=== PATIENT | female | born 1960 | race African-American/Black ===

== ENCOUNTER 2018-12-20 21:34 | Inpatient (IN) | payer MEDICAID, OTHER ==
[~2018-12-20] VITALS: Ht 152.4 cm; Wt 66.7 kg
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
[2018-12-20] MEDS ORDERED: IV NS 0.9% 1,000 ML BAG IV ONE (22:30)
[2018-12-20] MEDS ORDERED: CLONIDINE HCL 0.1 MG TABLET PO ONE (22:30)
[2018-12-20] MEDS ORDERED: ONDANSETRON HCL/PF 4 MG/2 ML VIAL IVP ONE (22:30)
[2018-12-20] MEDS ORDERED: MORPHINE SULFATE INJ 2 MG/ML DISP.SYRIN IV ONE (22:30)
[2018-12-20 22:38] LABS: BASOPHILS # (AUTO) 0.1 /CMM (0.0-0.2); BASOPHILS % (AUTO) 0.6 % (0.0-2.0); EOSINOPHILS % (AUTO) 2.1 % (0.0-6.0); HEMATOCRIT 36 % (33-45); HEMOGLOBIN 11.2 g/dL (11.5-14.8); LYMPHOCYTES # (AUTO) 1.4 /CMM (0.8-4.8); LYMPHOCYTES % (AUTO) 9.6 % (20.0-44.0); MEAN CORPUSCULAR HGB CONC 31 g/dl (31.0-36.0); MEAN CORPUSCULAR VOLUME 77 fL (82-100); MONOCYTES # (AUTO) 0.6 /CMM (0.1-1.30); NEUTROPHILS # (AUTO) 12.2 /CMM (1.8-8.9); NEUTROPHILS % (AUTO) 83.7 % (43.0-81.0); PLATELET COUNT (AUTO) 236 /CMM (150-450); RED BLOOD CELL COUNT(AUTO) 4.75 MIL/uL (4.0-5.2); WHITE BLOOD COUNT (AUTO) 14.6 K/uL (4.3-11.0)
[2018-12-20] MEDS ORDERED: ONDANSETRON HCL/PF 4 MG/2 ML VIAL ONE (22:39)
[2018-12-20] MEDS ORDERED: MORPHINE SULFATE INJ 2 MG/ML DISP.SYRIN ONE (22:39)
[2018-12-20] MEDS ORDERED: CLONIDINE HCL 0.1 MG TABLET ONE (22:39)
[2018-12-20 22:41] LABS: CALCIUM, SERUM 8.6 mg/dL (8.5-10.1); CREATININE 1.1 mg/dL (0.6-1.3); POTASSIUM 3.1 mmol/L (3.5-5.1)
[2018-12-20] MEDS ORDERED: hydrALAZINE HCL IV 20 MG VIAL ONE (23:42)
--- NOTE | 2018-12-20 23:50 | NUR ---
PT IN BED RESTING. -NEURO DEFICITS NOTED. AOX4.
[2018-12-20] MEDS ORDERED: POTASSIUM CHLORIDE 20 MEQ TAB.PRT.SR PO ONE (23:54)
[2018-12-20] MEDS ORDERED: LEVETIRACETAM (250 MG) 250 MG TABLET PO ONE (23:54)
[2018-12-21] VITALS (37 sets, daily range): BP systolic 116–204; BP diastolic 48–109
[2018-12-21] MEDS ORDERED: LEVETIRACETAM (500MG) 1,000 MG in IV NS 0.9% 100 ML IV SCH ×2
[2018-12-21] MEDS ORDERED: hydrALAZINE HCL IV 20 MG VIAL IV ONE
[2018-12-21] MEDS ORDERED: POTASSIUM CHLORIDE 20 MEQ TAB.PRT.SR PO ONE
[2018-12-21] MEDS: LEVETIRACETAM (250 MG) 250 MG TABLET PO SCH ×3 (00:01→17:10)
[2018-12-21] MEDS ORDERED: LEVETIRACETAM (250 MG) 250 MG TABLET PO ONE ×2 (00:08→01:00)
[2018-12-21 00:36] LABS: APPEARANCE,URINE Clear (CLEAR); BILIRUBIN,URINE Negative (NEGATIVE); BLOOD, URINE Moderate Ery/uL (NEGATIVE); COLOR,URINE Yellow (YELLOW); KETONES,URINE Negative (NEGATIVE); LEUKOCYTE ESTERASE ,URINE Negative (NEGATIVE); NITRITE, URINE Negative (NEGATIVE); PROTEIN,URINE >=300 mg/dl (NEGATIVE); UGLUCOSE Negative (NEGATIVE)
--- NOTE | 2018-12-21 00:40 | NUR ---
REPORT GIVEN TO ICU.
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
[2018-12-21 01:07] LABS: BACTERIA,URINE None seen /HPF (None Seen); HYALINE CASTS, URINE Few /LPF (None Seen); RBC,URINE 21-50 /HPF (0-2); SQUAMOUS EPITHELIAL CELL,UR Few /HPF (None Seen); WBC,URINE 0-2 /HPF (0-3)
[2018-12-21] MEDS ORDERED: ONDANSETRON HCL/PF 4 MG/2 ML VIAL IVP PRN (01:30)
[2018-12-21] MEDS: METOPROLOL TARTRATE INJ 5 MG/5 ML AMPUL IVP PRN ×2 (01:34→22:45)
[2018-12-21] MEDS: LISINOPRIL (10MG) 10 MG TABLET PO SCH ×3 (01:34→20:15)
[2018-12-21 04:15] LABS: BASOPHILS % (AUTO) 0.3 % (0.0-2.0); HEMATOCRIT 32 % (33-45); HEMOGLOBIN 10.1 g/dL (11.5-14.8); LYMPHOCYTES # (AUTO) 0.6 /CMM (0.8-4.8); LYMPHOCYTES % (AUTO) 4.8 % (20.0-44.0); MEAN CORPUSCULAR HGB CONC 32 g/dl (31.0-36.0); MEAN CORPUSCULAR VOLUME 76 fL (82-100); MONOCYTES # (AUTO) 0.7 /CMM (0.1-1.30); MONOCYTES % (AUTO) 5.6 % (2.0-12.0); NEUTROPHILS # (AUTO) 10.5 /CMM (1.8-8.9); NEUTROPHILS % (AUTO) 89.3 % (43.0-81.0); PLATELET COUNT (AUTO) 201 /CMM (150-450); RED BLOOD CELL COUNT(AUTO) 4.14 MIL/uL (4.0-5.2); WHITE BLOOD COUNT (AUTO) 11.8 K/uL (4.3-11.0)
[2018-12-21 04:42] LABS: ALBUMIN 3.2 g/dL (3.4-5.0); BILIRUBIN,TOTAL 0.9 mg/dL (0.2-1.0); CREATININE 1.1 mg/dL (0.6-1.3); POTASSIUM 3.4 mmol/L (3.5-5.1); TOTAL PROTEIN, SERUM 7.3 g/dL (6.4-8.2)
--- NOTE | 2018-12-21 07:56 | NUR ---
WOUND CARE CONSULT: DIFFICULT AND LIMITED ASSESSMENT OF SKIN DUE TO PT'S DISCOMFORT AND INABILITY TO TURN COMPLETELY IN BED. PT PRESENTS WITH SCALP AND LEFT HIP/LOWER BACK ABRASIONS AND BRUISING WITH DRY ABRASIONS WELL. PT COMPLAINS OF PAIN IN LEFT LOWER LEG AND THIGH. RN TO DISCUSS WITH MD. RECOMMENDATIONS MADE FOR WOUND CARE AND SKIN PROTECTION. DISCUSSED WITH NURSING STAFF. VERY LONG CURLING TOENAILS NOTED. RECOMMEND DPM CONSULT. PT AGREES. RECOMMEND SURGICAL CONSULT FOR ABRASIONS. WILL SEE PRN. CURRENT OMAR SCORE IS 16. MD IN AGREEMENT WITH PLAN OF CARE. Addendum: 12/21/18 at 0802 by GLADYS MA WNDNU Amended: Links added.
[2018-12-21] MEDS ORDERED: Z GUARD REMEDY 2 OZ OINT TP PRN (08:00)
[2018-12-21] MEDS: PANTOPRAZOLE 40 MG TABLET.DR PO SCH (08:23)
[2018-12-21] MEDS: METOPROLOL TARTRATE 50 MG TABLET PO SCH ×2 (08:24→17:10)
[2018-12-21] MEDS: Z GUARD REMEDY 2 OZ OINT TP SCH (08:24)
[2018-12-21 08:28] LABS: IRON, SERUM 31 ug/dl (50-175); TOTAL IRON BINDING CAPACITY 277 ug/dl (250-450)
[2018-12-21] MEDS ORDERED: LEVETIRACETAM SOL (5 ML) 100 MG/ML UDC PO SCH (09:00)
--- NOTE | 2018-12-21 09:30 | NUR ---
RN NOTE 0715: received patient awake. A/Ox4. With PIV intact, on SL. Mathew cath intact, noted with clear jason colored urine drained to BSD. SR 80's on the monitor. SBP 130's now. No c/o chest pain. With c/o generalized pain. 0800: S/E by wound care consult. Skin reassessed. Noted with LLE pain when moving. Trop 0.239, reported to Dr. Herman because he called to follow up, lab said the did not receive the order. Also made Dr. Macias in the unit aware. 0900: S/E by Dr. Macias, with order to do Xray on LLE and will do follow up CT head. 929: Still with c/o pain, will given Tylenol, she said Tylenol regular is ok, she can have she said.
[2018-12-21] MEDS: ACETAMINOPHEN 325 MG TABLET PO PRN ×2 (09:39→21:04)
[2018-12-21] MEDS ORDERED: CLON0.2T PO (10:22)
--- NOTE | 2018-12-21 11:10 | NUR ---
RN NOTE Patient back from CT, accompanied patient to CT, no any significant changes noted.
[2018-12-21] MEDS ORDERED: POTASSIUM CHLORIDE 20 MEQ TAB.PRT.SR PO SCH (11:30)
[2018-12-21] MEDS: IV 1/2NS 1000 ML 1,000 ML IV PRN (13:34)
--- NOTE | 2018-12-21 13:35 | NUR ---
RN NOTE Made MD aware re: low UOP, 30-40 q2H, obtained order to start on /2 NS @ 75, still encouraged patient to increase oral fluid intake. Also made her aware re: the result of left knee XR, questionable transverse fracture through fibular head.
--- NOTE | 2018-12-21 16:37 | NUR ---
RN NOTE 1620: S/E by Dr. Wale Mcgill assistance. To continue monitor, pain med as ordered. S/E by Belen, with order to lpace Xeroform on lower back abrasion and ABD pad, aslo to occipital area abrasion. general service technician at bedside for Carotid duplex and echo. 1635: XR tech at bedside for left ankle XR.
--- NOTE | 2018-12-21 16:56 | NUR ---
RN NOTE Skin treatment done. Cleansed lower back abrasion with NS, applied Xeroform and covered with Mepilex. Cleansed occipital area wound with NS, pat dry and applied Xeroform, Mepilex and secured with burn net.
[2018-12-21] MEDS ORDERED: ENSURE ENLIVE CHOC 237 ML CAN PO SCH (17:00)
--- NOTE | 2018-12-21 18:21 | NUR ---
RN NOTE SonBrenda came to visit, updated patient re: patient's condition. All questions and concerns were answered. Obtained number for emergency to call .
--- NOTE | 2018-12-21 19:30 | NUR ---
MUSIC INDUSTRY INTERN: RECEIVED PT A/O X 3. ON ROOM AIR WT NO ACUTE DISTRESS. NO C/O OF PAIN AT THIS TIME ONLY DURING REPOSITIONING. SR WT BBB ON STORE OPERATIONS ASSOCIATE. ON 09/21 NS AT 75ML/HR WT NO S/S OF IV INFILTRATION. F/C DRAINING YELLOW URINE TO GRAVITY. HOB AT 35 DEGREES. SAFETY PRECAUTION NOTED. CALL LIGHT KEPT WITHIN REACH. WILL CONTINUE TO MONITOR.
[2018-12-21] MEDS: NITROGLYCERIN PACKET 1 GM PACKET TOP PRN (21:41)
--- NOTE | 2018-12-21 22:05 | NUR ---
RECORDS TECH: REASSESSED AFTER GIVEN TYLENOL FOR LEFT LEG PAIN AND PT VERBALIZED RELIEF AT THIS TIME (0/10). WILL CONTINUE TO MONITOR.
--- NOTE | 2018-12-21 22:45 | NUR ---
CONDUCTOR/BRAKEMAN: METOPROLOL IV PRN GIVEN FOR SBP STILL ABOVE 150 DESPITE GIVEN NITRO BID OINTMENT. REMAINED A/O X 3. WILL CONTINUE TO MONITOR EFFECTIVITY.
[2018-12-22] VITALS (23 sets, daily range): BP systolic 130–199; BP diastolic 69–127
--- NOTE | 2018-12-22 00:30 | NUR ---
SAFETY LEAD: PAGED DR. ELLIOTT, RFID SYSTEMS ARCHITECT TO NOTIFY HIM OF PT's HIGH BP DESPITE NITRO AND METOPROLOL ADMIN AND MAYBE STRONGER PAIN MED PT VERBALIZES PAIN DURING REPOSITIONING. AWAITING TO CALL BACK.
--- NOTE | 2018-12-22 00:35 | NUR ---
RECRUITING OPERATIONS CONSULTANT: DR. ELLIOTT IN ICU UNIT AND MADE AWARE OF TRENDING HIGH BP AND RECOMMENDED STRONGER PAIN MED. SAID HE PLACED ORDERS FOR MORPHINE AND CONTINUE TO MONITOR PT.
[2018-12-22] MEDS: MORPHINE SULFATE INJ 2 MG/ML DISP.SYRIN IV PRN ×3 (02:16→21:23)
--- NOTE | 2018-12-22 02:20 | NUR ---
CASH GRAIN GROWER: SBP STILL HIGH AT THIS TIME. PT C/O PAIN (8/10) ON BOTH LEGS DURING REPOSITIONING. MORPHINE GIVEN ORDERED. WILL CONTINUE TO MONITOR EFFECTIVITY. PLACED ON 2L 02 VIA NC. HOB ON HIGH CHAUDHRY'S.
[2018-12-22] MEDS: IV 1/2NS 1000 ML 1,000 ML IV PRN ×2 (03:20→21:01)
--- NOTE | 2018-12-22 03:20 | NUR ---
PLASTER FOREMAN: NOTIFIED DR. ELLIOTT THAT BP CONTINUES TO BE ELEVATED EVEN AFTER MORPHINE ADMIN. MD PLACED NEW ORDERS. WILL ADMINISTER ORDERED AND MONITOR EFFECTIVITY.
[2018-12-22] MEDS: AMLODIPINE BESYLATE 5 MG TABLET PO SCH ×3 (03:29→20:01)
[2018-12-22 04:54] LABS: BASOPHILS % (AUTO) 0.4 % (0.0-2.0); EOSINOPHILS % (AUTO) 4.3 % (0.0-6.0); HEMATOCRIT 30 % (33-45); HEMOGLOBIN 9.6 g/dL (11.5-14.8); LYMPHOCYTES # (AUTO) 1.3 /CMM (0.8-4.8); MEAN CORPUSCULAR HGB CONC 32 g/dl (31.0-36.0); MEAN CORPUSCULAR VOLUME 76 fL (82-100); MONOCYTES # (AUTO) 0.7 /CMM (0.1-1.30); MONOCYTES % (AUTO) 9.6 % (2.0-12.0); NEUTROPHILS # (AUTO) 5.3 /CMM (1.8-8.9); NEUTROPHILS % (AUTO) 68.7 % (43.0-81.0); PLATELET COUNT (AUTO) 180 /CMM (150-450); RED BLOOD CELL COUNT(AUTO) 3.89 MIL/uL (4.0-5.2); WHITE BLOOD COUNT (AUTO) 7.8 K/uL (4.3-11.0)
[2018-12-22] MEDS: hydrALAZINE HCL 25 MG TABLET PO PRN ×3 (05:08→18:17)
[2018-12-22 05:13] LABS: CALCIUM, SERUM 8.3 mg/dL (8.5-10.1); MAGNESIUM 2.1 mg/dL (1.8-2.4); PHOSPHORUS 2.6 mg/dL (2.5-4.9); POTASSIUM 3.6 mmol/L (3.5-5.1)
[2018-12-22] MEDS: NITROGLYCERIN PACKET 1 GM PACKET TOP PRN ×2 (06:12→20:02)
[2018-12-22 06:25] LABS: THYROID STIMULATING HORMONE 2.163 uIU/mL (0.358-3.74)
--- NOTE | 2018-12-22 06:25 | NUR ---
PLATE WORKER HELPER: GIVEN NITRO BID OINTMENT AGAIN AFTER GIVEN APRESOLINE WTO GOOD EFFECT. REMAINED A/O X 3. ASLEEP, ABLE TO WAKE UP AND MAKE NEEDS KNOWN. CONTINUE ON 2L 02 VIA LA FOR SAT BET. 90-91 ON R/A. HOB AT 45 DEGREES. REFUSED BED BATH AND REPOSITIONING LATER DURING THE SHIFT AND SAID IT HURTS TO MOVE AROUND. SAFETY PRECAUTION NOTED AT ALL TIMES.
--- NOTE | 2018-12-22 08:00 | NUR ---
FOOD SCIENTIST: RECEIVED PT ALERT, ORIENTED ON 2L NC NO SOB NOTED AT THIS TIME NO C/O OF PAIN AT THIS TIME ONLY DURING REPOSITIONING. SR WT BBB ON MOLECULAR BIOLOGY SCIENTIST. ON 09/21 NS AT 75ML/HR WT NO S/S OF IV INFILTRATION. F/C DRAINING YELLOW URINE TO GRAVITY. HOB AT 35 DEGREES. SAFETY PRECAUTION NOTED. CALL LIGHT KEPT WITHIN REACH. WILL CONTINUE TO MONITOR. HAVING BREAKFAST FED BY STUFF, CALL LIGHT WITHIN REACH , WILL CONT TO MONITOR CLOSELY
[2018-12-22] MEDS: LEVETIRACETAM (250 MG) 250 MG TABLET PO SCH ×2 (08:19→17:08)
[2018-12-22] MEDS: LISINOPRIL (10MG) 10 MG TABLET PO SCH ×2 (08:22→20:01)
[2018-12-22] MEDS: PANTOPRAZOLE 40 MG TABLET.DR PO SCH (08:22)
[2018-12-22] MEDS: METOPROLOL TARTRATE 50 MG TABLET PO SCH ×2 (08:22→17:09)
[2018-12-22] MEDS: Z GUARD REMEDY 2 OZ OINT TP SCH (08:27)
--- NOTE | 2018-12-22 10:42 | NUR ---
ENERGY ATTORNEY NOTE C\O PAIN ON LEGS 9\10 SCALE BP143/78 SAT 98% MORPHINE 2 MG IVP GIVEN WILL F\U
--- NOTE | 2018-12-22 14:30 | NUR ---
ATTENDANT SALES NOTE SPOKE WITH DR BOWEN NOTIFIED ABOUT TROP 0.140 CK-MB 104.[address] HEAD RESULT STATED THAT WILL CALL DANCE MASTER AND NEUROLOGIST TO CHECK PATIENT ALSO NOTIFIED THAT PATENT STILL HAS BP SBP 180 AND 170 ,ON PRINIVIL AND OTHER BP MEDS STATED THAT WILL ADJUST BP MEDS
--- NOTE | 2018-12-22 14:30 | NUR ---
ELECTRO MECHANIC NOTE X RAY RT LEG DONE ORDERED
--- NOTE | 2018-12-22 14:40 | NUR ---
OVERLOCKER NOTE DR BOWEN NOTIFIED THAT URINE OUT PUT 250 ML SINCE 0700, NO NEW ORDER GIVEN AT THIS TIME
--- NOTE | 2018-12-22 14:45 | NUR ---
STAFF APPRAISER NOTE DOPPLER US RT LEG DONE ORDERED
--- NOTE | 2018-12-22 15:05 | NUR ---
UI UX ENGINEER NOTE TRANSFERRED TO [facility] UNIT BY ACLS PROTOCOL BY BED , WITH STABLE CONDITION , REPORT GIVEN TO TORIN OZUNA
--- NOTE | 2018-12-22 15:05 | NUR ---
MS RN NOTES RECEIVED PATIENT FROM ICU REPORT GIVEN BY SABRINA ALERT ORIENTED X 2-3. NO ACUTE DISTRESS NOTED. BREATHING UNLABORED. NO SOB NOTED. ON O2 @ 2LPM VIA NC SATURATING 99%. SMITH CATHETER INTACT DRAINING WELL. ON TELE MONITOR. IV ACCESS PATENT AND INTACT, NO REDNESS OR SWELLING NOTED. SAFETY MEASURES IN PLACE. CALL LIGHT WITHIN REACH. WILL CONTINUE TO MONITOR ACCORDINGLY.
[2018-12-22] MEDS ORDERED: ACETAMINOPHEN 325 MG TABLET PO PRN (16:30)
--- NOTE | 2018-12-22 17:06 | NUR ---
RN NOTES PATIENT NOTED WITH BLOOD PRESSURE OF 180/90 , PULSE 82, NOT IN DISTRESS. DR SNELL PRESENT IN THE UNIT MADE AWARE SAID TO GIVE METOPROLOL TARTRATE 100 MG FOR NOW SCHEDULED AT 1800, RECHECK BLOOD PRESSURE AGAIN AFTER 1 HOUR AND MAY GIVE HYDRALAZINE 25 MG PRN ORDERED.
--- NOTE | 2018-12-22 18:17 | NUR ---
RN NOTES BLOOD PRESSURE 178/91 PULSE 81, HYDRALAZINE PRN GIVEN ,DR SNELL PRESENT IN THE UNIT AWARE.
--- NOTE | 2018-12-22 19:00 | NUR ---
MS RN NOTES PATIENT IN BED ALERT ORIENTED X 2-3. NO ACUTE DISTRESS NOTED. BREATHING UNLABORED. SAFETY MEASURES IN PLACE. CALL LIGHT WITHIN REACH. WILL CONTINUE TO MONITOR ACCORDINGLY.
--- NOTE | 2018-12-22 20:00 | NUR ---
kaitlin rn notes received pts in bed awake alert oriented x1-2 , on tele monitor sr 74with bbb- on the monitor , no sob no distress noted .pts on o2 at 2 liters via nc sating 96% bp 170/81 ,norvasc prinivil and nitrobid given as ordered, will continue to monitor pts.with iv heplock on left wrist g#20 with ivf of 1/2 ns at 75cc/hr well tolerated , all needs attended too call light within reach , pts on NWB-BLE,all due meds given as ordered, kept pts clean dry and comfortable, pts on f/a intact and patent draining with yellowish urine output, pts no complain of pain at this time.
[2018-12-23] VITALS: BP 164/85
[2018-12-23 04:00] VITALS: BP 162/78
[2018-12-23] MEDS: hydrALAZINE HCL 25 MG TABLET PO PRN ×3 (04:30→16:16)
--- NOTE | 2018-12-23 04:30 | NUR ---
kaitlin rn notes blood pressure at 4am is 162/85 -Apresoline 25 mg via po given as ordered .will continue to monitor pts
--- NOTE | 2018-12-23 06:23 | NUR ---
kaitlin rn notes pts in bed alert and responsive , all needs attended too call light within reach pts remains on tele sr on the monitor , v/s stable afebrile no c/o of pain at this time , will endorse to rn day shift for continuity of care, pts continue on ivf 1/2 ns at 75cc/hr infusing well.
[2018-12-23 06:44] LABS: BASOPHILS # (AUTO) 0.1 /CMM (0.0-0.2); BASOPHILS % (AUTO) 0.8 % (0.0-2.0); EOSINOPHILS % (AUTO) 3.5 % (0.0-6.0); HEMATOCRIT 29 % (33-45); HEMOGLOBIN 9.5 g/dL (11.5-14.8); LYMPHOCYTES # (AUTO) 1.7 /CMM (0.8-4.8); LYMPHOCYTES % (AUTO) 17.7 % (20.0-44.0); MEAN CORPUSCULAR HGB CONC 32 g/dl (31.0-36.0); MEAN CORPUSCULAR VOLUME 76 fL (82-100); MONOCYTES # (AUTO) 0.8 /CMM (0.1-1.30); MONOCYTES % (AUTO) 8.8 % (2.0-12.0); NEUTROPHILS # (AUTO) 6.6 /CMM (1.8-8.9); NEUTROPHILS % (AUTO) 69.2 % (43.0-81.0); PLATELET COUNT (AUTO) 149 /CMM (150-450); RED BLOOD CELL COUNT(AUTO) 3.89 MIL/uL (4.0-5.2); WHITE BLOOD COUNT (AUTO) 9.6 K/uL (4.3-11.0)
[2018-12-23 06:59] LABS: CALCIUM, SERUM 8.5 mg/dL (8.5-10.1); CREATININE 0.7 mg/dL (0.6-1.3); MAGNESIUM 2.1 mg/dL (1.8-2.4); PHOSPHORUS 3.6 mg/dL (2.5-4.9)
--- NOTE | 2018-12-23 07:10 | NUR ---
[facility] RN OPENING NOTES RECEIVED PT LYING ON BED.ALERT/ORIENTED X3.ON TELE HR IS 89 WITH SR.ON 2 L O2 VIA NC CONTINUOUSLY.NO SOB AND ACUTE DISTRESS NOTED.NO PAIN NOTED FOR NOW.ON FC IS IN PLACE.IV LINE IS ON LEFT WRIST G20 WITH 1/2 NS @75CC/HR IS RUNNING.SITE IS CLEAN,DRY AND INTACT.NO INFILTRATION NOTED.BED IS IN LOW POSITION AND LOCKED.CALL LIGHT IS WITHIN REACH.WILL CONTINUE TO MONITOR THE POT CLOSELY.
[2018-12-23 08:00] VITALS: BP 154/91
[2018-12-23] MEDS: PANTOPRAZOLE 40 MG TABLET.DR PO SCH (08:33)
[2018-12-23] MEDS: LISINOPRIL (10MG) 10 MG TABLET PO SCH ×3 (08:38→21:43)
[2018-12-23] MEDS: LEVETIRACETAM (250 MG) 250 MG TABLET PO SCH ×2 (08:38→16:15)
[2018-12-23] MEDS: Z GUARD REMEDY 2 OZ OINT TP SCH (08:39)
[2018-12-23] MEDS: METOPROLOL TARTRATE 50 MG TABLET PO SCH ×2 (08:39→17:04)
[2018-12-23] MEDS: AMLODIPINE BESYLATE 5 MG TABLET PO SCH ×2 (08:39→21:43)
[2018-12-23] MEDS: IV 1/2NS 1000 ML 1,000 ML IV PRN (11:14)
[2018-12-23 12:00] VITALS: BP 140/68
[2018-12-23 16:00] VITALS: BP_SYST 193; BP_DIAS 80; BP_DIAS 82
[2018-12-23] MEDS: NITROGLYCERIN PACKET 1 GM PACKET TOP PRN (16:15)
--- NOTE | 2018-12-23 16:15 | NUR ---
PHP WEBSITE DEVELOPER NOTES PT NOTED WITH TEMP 101.3,NOTIFIED DR.SANTA Layne,ORDERED STAT UA,URINE C&S,BLOOD CULTURE,CHEST X-RAY AND START MOTRIN 600MG PO Q6HR PRN FOR TEMP >99F AND IV LEVAQUIN 500MG QD.NEW ORDERS NOTED AND CARRIED OUT. Addendum: 12/23/18 at 1905 by NAOMI CHU RN APPLIED COLD APPLICATION BY SPONGE TOWEL.OFFERED MORE HYDRATION.
[2018-12-23] MEDS: IBUPROFEN 200 MG TABLET PO PRN (17:19)
--- NOTE | 2018-12-23 17:45 | NUR ---
COMPUTER FORENSICS ANALYST NOTES URINE IS COLLECTED AND LAB IS NOTIFIED TO FUMIGATOR AND STERILIZER.
--- NOTE | 2018-12-23 18:17 | NUR ---
PROCESS SPECIALIST NOTES CHEST X RAY RESULT NOTIFIED TO DR.SANTA JOHNSON.NNO NOTED.
[2018-12-23] MEDS: LEVOFLOXACIN 500 MG /D5W 100ML 500 MG in PREMIX 1 EA IV SCH (18:22)
--- NOTE | 2018-12-23 18:30 | NUR ---
MEDIA STRATEGIST NOTES RECHECKED TEMP-98.4.NOTIFIED TO DR.SANTA JOHNSON
--- NOTE | 2018-12-23 18:47 | NUR ---
HOSPITALITY HOUSE SUPERVISOR CLOSING NOTES PT IS LYING ON BED.ALERT/ORIENTED X3.ON TELE HR IS 66 WITH SR.ON 2 L O2 VIA NC CONTINUOUSLY.NO SOB AND ACUTE DISTRESS NOTED.NO PAIN NOTED FOR NOW.ON FC IS IN PLACE.IV LINE IS ON LEFT WRIST G20 WITH IV LEVAQUIN 500MG IS RUNNING.SITE IS CLEAN,DRY AND INTACT.NO INFILTRATION NOTED.ALL THE DUE MEDS ARE GIVEN.RECHECKED TEMP -98.4 F.ENDORSED TO TANK CAR RECONDITIONER RN FOR KISHA AND TO RECHECK THE VITAL SIGNS.
--- NOTE | 2018-12-23 19:00 | NUR ---
OVERHEAD CRANE INSPECTOR OPENING NOTES Received patient A/O x2-3, awake with son at bedside. With O2 inhalation via NC @ 2LPM, saturating 94%. With indwelling catheter in place with clear yellow urine noted. No discomfort noted at this time. Kept bed low and locked, siderails x3 up, call light within easy reach. Will continue to monitor accordingly.
[2018-12-23 19:02] LABS: APPEARANCE,URINE CLEAR (CLEAR); BILIRUBIN,URINE NEGATIVE (NEGATIVE); BLOOD, URINE NEGATIVE Ery/uL (NEGATIVE); COLOR,URINE YELLOW (YELLOW); KETONES,URINE NEGATIVE (NEGATIVE); LEUKOCYTE ESTERASE ,URINE NEGATIVE (NEGATIVE); NITRITE, URINE NEGATIVE (NEGATIVE); PH,URINE 5.5 (5.0-8.0); PROTEIN,URINE NEGATIVE (NEGATIVE); UGLUCOSE NEGATIVE (NEGATIVE); UROBILINOGEN,URINE 0.2 EU/dL (0.2)
[2018-12-23 20:00] VITALS: BP 147/63
--- NOTE | 2018-12-23 20:15 | NUR ---
PIPELINE DISPATCH OPERATOR NOTES Patient noted with prominent confusion, pulled out her indwelling catheter. Notified educational institution president MD, Dr Herman with order STAT CT Scan of Head without contrast. Notified radiology.
--- NOTE | 2018-12-23 20:55 | NUR ---
MOLD UNLOADER NOTES Patient transported to radiology for the stat ct head without contrast as ordered. On external monitor, with O2 inhalation in place, accompanied by MARKUS Palmer.
--- NOTE | 2018-12-23 21:22 | NUR ---
DENTAL AMALGAM PROCESSOR NOTES Patient wheeled back to room via bed. Assisted to position of comfort, secured O2 inhalation properly. Attached to tele monitor - SR with BBB with ST elevation. Kept bed low and locked, siderails up x3, bed alarm on, call light within easy reach. Will continue to monitor accordingly.
--- NOTE | 2018-12-23 23:30 | NUR ---
SUPERVISOR TRANSCRIBING OPERATORS NOTES HEAD CT SCAN W/OUT CONTRAST RESULT RELAYED TO DR ELLIOTT WITH NEW ORDER NOTED. SON AT BEDSIDE KEPT UPDATED. WILL CONTINUE TO MONITOR ACCORDINGLY.
--- NOTE | 2018-12-23 23:53 | NUR ---
BIOLOGY SPECIMEN TECHNICIAN NOTES Patient asleep. Son leaved at this time.
[2018-12-24] VITALS: BP 136/64
[2018-12-24 04:00] VITALS: BP 136/64
[2018-12-24] MEDS: hydrALAZINE HCL 25 MG TABLET PO PRN (04:40)
[2018-12-24] MEDS: MORPHINE SULFATE INJ 2 MG/ML DISP.SYRIN IV PRN (04:40)
[2018-12-24] MEDS: NITROGLYCERIN PACKET 1 GM PACKET TOP PRN (04:40)
--- NOTE | 2018-12-24 06:20 | NUR ---
CLIENT HR MANAGER CLOSING NOTES Patient noted intermittently asleep, easily aroused. On semi-Vega's position on bed with O2 inahalation via NC @ 2LPM no SOB/respiratory distress noted. On tele monitor with SR noted. FC remained in placed with clear yellow urine output noted. Medicated for hypertension, noted effective with latest BP 144/74mmHg. Kept clean, dry and comfortable. Kept bed low and locked, siderails up, bed alarm on. Call light within easy reach. Endorsed to the next shift.
--- NOTE | 2018-12-24 07:20 | NUR ---
RN OPENING NOTE RECEIVED PATIENT ASLEEP ON HER BED, EASILY AROUSABLE TO TOUCH. CONFUSED. NO COMPLAINS OF ANY PAIN OR ANY SOB AT THIS TIME. SHE STATES THAT SHE FEELS BETTER TODAY. HAS A LEFT HIP ABRASION DUE TO S/P FALL. HAS A LEFT WRIST #20 SALINE LOCKED. DC PLANNING PER NOC SHIFT RN. WILL WATCH OUT FOR BLOOD PRESSURE, IT GOES UP AND PATIENT HAS HTN URGENCY. ON 2L NC. BED LOCKED AND ON LOWEST POSITION. CALL LIGHT WITHIN REACH. WILL CONTINUE TO MONITOR PATIENT CLOSELY.
[2018-12-24] MEDS: PANTOPRAZOLE 40 MG TABLET.DR PO SCH (07:48)
[2018-12-24] MEDS: METOPROLOL TARTRATE 50 MG TABLET PO SCH ×2 (07:48→17:59)
[2018-12-24 08:00] VITALS: BP 157/74
[2018-12-24] MEDS: AMLODIPINE BESYLATE 5 MG TABLET PO SCH ×2 (08:36→20:28)
[2018-12-24] MEDS: LEVETIRACETAM (250 MG) 250 MG TABLET PO SCH ×2 (08:36→16:09)
[2018-12-24] MEDS: LISINOPRIL (10MG) 10 MG TABLET PO SCH ×2 (08:36→20:28)
[2018-12-24] MEDS: hydrALAZINE HCL 50 MG TABLET PO SCH ×3 (08:40→16:57)
[2018-12-24 09:02] LABS: BASOPHILS # (AUTO) 0.1 /CMM (0.0-0.2); EOSINOPHILS % (AUTO) 3.8 % (0.0-6.0); HEMATOCRIT 27 % (33-45); HEMOGLOBIN 8.7 g/dL (11.5-14.8); LYMPHOCYTES # (AUTO) 1.2 /CMM (0.8-4.8); LYMPHOCYTES % (AUTO) 15.3 % (20.0-44.0); MEAN CORPUSCULAR HGB CONC 32 g/dl (31.0-36.0); MEAN CORPUSCULAR VOLUME 75 fL (82-100); MONOCYTES # (AUTO) 0.7 /CMM (0.1-1.30); MONOCYTES % (AUTO) 9.1 % (2.0-12.0); NEUTROPHILS # (AUTO) 5.7 /CMM (1.8-8.9); NEUTROPHILS % (AUTO) 70.8 % (43.0-81.0); PLATELET COUNT (AUTO) 201 /CMM (150-450); RED BLOOD CELL COUNT(AUTO) 3.59 MIL/uL (4.0-5.2); WHITE BLOOD COUNT (AUTO) 8.1 K/uL (4.3-11.0)
[2018-12-24 09:29] LABS: CALCIUM, SERUM 8.3 mg/dL (8.5-10.1); CREATININE 0.9 mg/dL (0.6-1.3); PHOSPHORUS 4.2 mg/dL (2.5-4.9); POTASSIUM 3.6 mmol/L (3.5-5.1)
--- NOTE | 2018-12-24 10:41 | NUR ---
RN NOTE PATIENT WAS SEEN BY THE PT. SEVERE WEAKNESS ON BOTH LEGS DUE TO HIP AND LOWER BACK ABRASIONS S/P FALL. ORDERED Z GUARD FROM THE PHARMACY
[2018-12-24] MEDS: Z GUARD REMEDY 2 OZ OINT TP SCH (13:17)
--- NOTE | 2018-12-24 15:00 | NUR ---
RN NOTE SON IS AT BEDSIDE, PHONE # . SON TALKED TO THE GARDENING MANAGER REGARDING THE PLACEMENT.
[2018-12-24 16:00] VITALS: BP 152/36
[2018-12-24] MEDS: LEVOFLOXACIN 500 MG /D5W 100ML 500 MG in PREMIX 1 EA IV SCH (17:48)
[2018-12-24] MEDS: FERROUS SULFATE (325 MG) 325 MG/TAB TABLET PO SCH (18:04)
--- NOTE | 2018-12-24 18:48 | NUR ---
RN CLOSING NOTE PATIENT IN BED ASLEEP BUT EASILY AROUSABLE. FINISHED HER DINNER 75%. SHE KEEPS FORGETTING THAT SHE HAS A SMITH CATH AND WANTS TO USE THE BEDSIDE COMMODE TO URINATE. NO BM DURING MY SHIFT. HAS A LEFT WRIST #20 SALINE LOCKED. BED ON LOWEST POSITION. CALL LIGHT WITHIN REACH. WILL ENDORSE TO NOC SHIFT RN FOR CONT OF CARE SON SAID HE WILL CALL TOMORROW AM TO DECIDE WHETHER HER MOM WILL GO HOME OR TO SNF
--- NOTE | 2018-12-24 19:45 | NUR ---
RN OPENING NOTES RECEIVED REPORT FROM DAYSHIFT RN. FOUND Pt ASLEEP IN BED, EASILY AWAKENED BY NAME. NO S/S OF ACUTE DISTRESS OR SOB NOTED. RESPIRATIONS EVEN AND UNLABORED. Pt IS A/OX1-2, WITH CONFUSION AND FORGETFULNESS. Pt IS VERBAL AND ABLE TO COMMUNICATE NEEDS AND ANSWER QUESTIONS AND FOLLOW COMMANDS. SMITH CATHETER IN PLACE, DRAINING WELL. IV ACCESS ON LWRIST #20G, SL. SAFETY MEASURES IN PLACE. BED LOW, LOCKED, HOB ELEVATED, SIDE RAILS UP, CALL LIGHT AND BEDSIDE TABLE WITHIN REACH. WILL CONTINUE TO MONITOR Pt's CONDITION AND SAFETY THROUGHOUT THE NIGHT.
--- NOTE | 2018-12-24 23:08 | NUR ---
RN NOTES EEG ORDERED BY DR FARRELL (NEURO MD) SCHEDULED FOR 12/25/18. SPOKE WITH EKATERINA ASHBY ([phone]) ON THE PHONE TO GET VERBAL CONSENT FOR EEG. ISREAL ASHBY SAID OK. SECOND WITNESS BY RECREATION TECHNICIAN ELSA.
[2018-12-25] VITALS: BP 180/98
[2018-12-25] MEDS: hydrALAZINE HCL 25 MG TABLET PO PRN (04:08)
[2018-12-25] MEDS: IBUPROFEN 200 MG TABLET PO PRN ×2 (04:21→13:00)
--- NOTE | 2018-12-25 05:06 | NUR ---
RN NOTES LWRIST IV GOT PULLED OUT. INSERTED NEW IV ACCESS ON RFA #22G.
--- NOTE | 2018-12-25 06:52 | NUR ---
RN CLOSING NOTES NO SIGNIFICANT CHANGES IN Pt's CONDITION. Pt REMAINS STABLE AT THIS TIME. NO S/S OF ACUTE DISTRESS OR SOB NOTED DURING THE NIGHT. Pt IS RESTING IN BED. RESPIRATIONS EVEN AND UNLABORED. SAFETY MEASURES IN PLACE. BED LOW, LOCKED, HOB ELEVATED, SIDE RAILS UP, CALL LIGHT AND BEDSIDE TABLE WITHIN REACH. WILL ENDORSE TO DAYSHIFT RN FOR Pt's KISHA.
[2018-12-25 07:03] LABS: BASOPHILS # (AUTO) 0.1 /CMM (0.0-0.2); BASOPHILS % (AUTO) 1.1 % (0.0-2.0); EOSINOPHILS % (AUTO) 3.6 % (0.0-6.0); HEMATOCRIT 29 % (33-45); HEMOGLOBIN 9.6 g/dL (11.5-14.8); LYMPHOCYTES # (AUTO) 1.3 /CMM (0.8-4.8); LYMPHOCYTES % (AUTO) 18.4 % (20.0-44.0); MEAN CORPUSCULAR HGB CONC 33 g/dl (31.0-36.0); MEAN CORPUSCULAR VOLUME 75 fL (82-100); MONOCYTES # (AUTO) 0.7 /CMM (0.1-1.30); NEUTROPHILS # (AUTO) 4.8 /CMM (1.8-8.9); NEUTROPHILS % (AUTO) 66.9 % (43.0-81.0); PLATELET COUNT (AUTO) 240 /CMM (150-450); RED BLOOD CELL COUNT(AUTO) 3.94 MIL/uL (4.0-5.2); WHITE BLOOD COUNT (AUTO) 7.1 K/uL (4.3-11.0)
[2018-12-25 07:21] LABS: CALCIUM, SERUM 8.3 mg/dL (8.5-10.1); CREATININE 0.7 mg/dL (0.6-1.3); MAGNESIUM 2.2 mg/dL (1.8-2.4); PHOSPHORUS 4.1 mg/dL (2.5-4.9); POTASSIUM 3.7 mmol/L (3.5-5.1)
--- NOTE | 2018-12-25 07:25 | NUR ---
RN OPENING NOTE RECEIVED PATIENT IN BED AWAKE AND ALERT, WAITING FOR HER BREAKFAST TRAY. SHE BECOMES CONFUSED FROM TIME TO TIME. HAS A SMITH CATH, WITH YELLOW AND CLEAR URINE. HAS LEFT HIP AND SCALP ABRASIONS. HAS A RIGHT FOREARM #22. PER NOC SHIFT, NEURO DOCTOR CAME IN LAST NIGHT AND WAS ASKING ABOUT THE NEURO SURGERY. WILL LET MD KNOW THIS MORNING ABOUT THIS. DR. FARRELL ORDERED EEG FOR THE PATIENT, SON IS AWARE AND CONSENT HAS BEEN SIGNED. BED LOCKED AND IN LOWEST POSITION. CALL LIGHT WITHIN REACH. WILL CONTINUE TO MONITOR CLOSELY
[2018-12-25] MEDS: LEVETIRACETAM (250 MG) 250 MG TABLET PO SCH ×2 (08:48→16:10)
[2018-12-25] MEDS: FERROUS SULFATE (325 MG) 325 MG/TAB TABLET PO SCH ×2 (08:48→16:10)
[2018-12-25] MEDS: PANTOPRAZOLE 40 MG TABLET.DR PO SCH (08:48)
[2018-12-25] MEDS: hydrALAZINE HCL 50 MG TABLET PO SCH ×3 (08:48→16:16)
[2018-12-25] MEDS: AMLODIPINE BESYLATE 5 MG TABLET PO SCH ×2 (08:49→21:04)
[2018-12-25] MEDS: METOPROLOL TARTRATE 50 MG TABLET PO SCH ×2 (08:49→17:42)
[2018-12-25] MEDS: LISINOPRIL (10MG) 10 MG TABLET PO SCH ×2 (08:50→21:04)
[2018-12-25] MEDS: Z GUARD REMEDY 2 OZ OINT TP SCH (08:52)
[2018-12-25 09:00] VITALS: BP 164/88
--- NOTE | 2018-12-25 14:11 | NUR ---
RN NOTE DR JOHNSON CAME IN TODAY TO CHECK THE PATIENT. DC HAS BEEN SUSPENDED DUE TO PATIENT'S SBP IS STILL >160. MD ORDERED 100MG OF HYDRALAZINE. WILL CONTINUE TO MONITOR PATIENT SON AT BEDSIDE. STILL UNDECIDED WHETHER HIS MOM IS GOING HOME OR TO SNF. EEG WAS DONE THIS AM. PATIENT HAD A BM AND OB STOOL SAMPLE HAS BEEN COLLECTED. CALLED LAB TO SHIP CLEANER.
[2018-12-25 15:15] LABS: OCCULT BLOOD STOOL NEGATIVE (NEGATIVE)
[2018-12-25 16:00] VITALS: BP 162/87
[2018-12-25] MEDS: LEVOFLOXACIN 500 MG /D5W 100ML 500 MG in PREMIX 1 EA IV SCH (17:26)
[2018-12-25 18:30] VITALS: BP 129/71
--- NOTE | 2018-12-25 18:31 | NUR ---
RN NOTE PATIENT'S BLOOD PRESSURE AT 1730 WAS 162/86, RECHECKED AFTER AN HOUR: BP 129/71
--- NOTE | 2018-12-25 18:45 | NUR ---
RN NOTE CALLED RADIOLOGY REGARDING PATIENT'S EEG RESULT. HE SAID HE WILL ASK THE COLOR BLENDER ABOUT IT. SON WAS ASKING ABOUT THE RESULT, I TOLD HIM IT WAS STILL PENDING. PLS FOLLOW UP
--- NOTE | 2018-12-25 18:54 | NUR ---
RN CLOSING NOTE PATIENT STABLE, HAD ISSUES WITH HER BP. SEE NOTES FOR BP FOR THE SHIFT. LAST TAKEN WAS 129/71. ALL MEDS ARE GIVEN, ALL NEEDS ARE MET. SON AWARE PLANS. NO COMPLAINS OF ANY PAIN OR ANY SOB. PATIENT CAN GO TO THE BEDSIDE COMMODE WITH ASSIST. SMITH CATH 1000ML OUTPUT. DC PLANNING FOR TOMORROW IF BP STABILIZE Addendum: 12/25/18 at 1857 by GEORGES PALACIO RN WILL ENDORSE TO NOC REJI RN FOR CONT OF CARE
--- NOTE | 2018-12-25 19:54 | NUR ---
RN MS OPENING NOTES RECEIVED PT IN BED, AWAKE ALERT ORIENTED X3, BREATHING EVEN AND UNLABORED ON ROOM AIR, NO SOB, COUGH OR CONGESTION. NO COMPLAINT OF PAIN OR DISCOMFORT AT THE TIME, BP IS 140/75 WILL CONTINUE TO MONITOR. IV ACCESS ON THE R FA 22G SL PATENT AND FLUSHING. F/C IN PLACE, BED IN LOWEST LOCKED POSITION, CALL LIGHT WITHIN REACH AT ALL TIMES, WILL CONTINUE TO MONITOR FREQUENTLY.
[2018-12-25 20:00] VITALS: BP 140/75
[2018-12-25 20:17] VITALS: BP 140/75
[2018-12-25] MEDS: MORPHINE SULFATE INJ 2 MG/ML DISP.SYRIN IV PRN (21:05)
[2018-12-26 04:00] VITALS: BP 167/83
[2018-12-26 05:10] VITALS: BP 167/75
[2018-12-26] MEDS: METOPROLOL TARTRATE INJ 5 MG/5 ML AMPUL IVP PRN (05:16)
[2018-12-26] MEDS: hydrALAZINE HCL 25 MG TABLET PO PRN (05:20)
--- NOTE | 2018-12-26 05:29 | NUR ---
pt bp 167/83, prn bp med administered, will continue to monitor
--- NOTE | 2018-12-26 06:14 | NUR ---
RN MS CLOSING NOTES PT REMAINS IN BED, SLEEPING, EASILY AROUSED TO NAME CALL, BREATHING EVEN AND UNLABORED ON ROOM AIR, NO SOB, COUGH OR CONGESTION. NO COMPLAINT OF PAIN OR DISCOMFORT AT THE TIME. IV ACCESS ON THE L WRIST 20G SL PATENT AND FLUSHING. F/C IN PLACE, BED IN LOWEST LOCKED POSITION, CALL LIGHT WITHIN REACH AT ALL TIMES, WILL ENDORSE TO DAY NURSE FOR KISHA
--- NOTE | 2018-12-26 07:33 | NUR ---
MS RN OPENING NOTE RECEIVED PT IN BED, ALERT AND ORIENTED X2-3. NO ACUTE DISTRESS NOTED. BREATHING IS EVEN AND UNLABORED ON ROOM AIR. LEFT WRIST 20G IV IS SALINE LOCKED WITHOUT REDNESS OR SWELLING. SMITH CATHETER NOTED TO BE DRAINING CLEAR, YELLOW URINE. ALL NEEDS ATTENDED TO. BED IS LOCKED AND IN LOWEST POSITION, SIDE RAILS UP X2, BED ALARM ON, CALL LIGHT AND POSSESSIONS WITHIN REACH.
[2018-12-26 07:57] LABS: BASOPHILS # (AUTO) 0.1 /CMM (0.0-0.2); BASOPHILS % (AUTO) 1.3 % (0.0-2.0); EOSINOPHILS % (AUTO) 6.1 % (0.0-6.0); HEMATOCRIT 31 % (33-45); HEMOGLOBIN 9.9 g/dL (11.5-14.8); LYMPHOCYTES # (AUTO) 1.3 /CMM (0.8-4.8); LYMPHOCYTES % (AUTO) 19.8 % (20.0-44.0); MEAN CORPUSCULAR HGB CONC 33 g/dl (31.0-36.0); MEAN CORPUSCULAR VOLUME 75 fL (82-100); MONOCYTES # (AUTO) 0.8 /CMM (0.1-1.30); MONOCYTES % (AUTO) 11.2 % (2.0-12.0); NEUTROPHILS # (AUTO) 4.2 /CMM (1.8-8.9); NEUTROPHILS % (AUTO) 61.6 % (43.0-81.0); PLATELET COUNT (AUTO) 145 /CMM (150-450); RED BLOOD CELL COUNT(AUTO) 4.05 MIL/uL (4.0-5.2); WHITE BLOOD COUNT (AUTO) 6.8 K/uL (4.3-11.0)
[2018-12-26 08:00] VITALS: BP 164/83
[2018-12-26 08:05] LABS: CALCIUM, SERUM 8.6 mg/dL (8.5-10.1); CREATININE 0.7 mg/dL (0.6-1.3); MAGNESIUM 2.2 mg/dL (1.8-2.4); PHOSPHORUS 4.3 mg/dL (2.5-4.9); POTASSIUM 3.8 mmol/L (3.5-5.1)
[2018-12-26 08:09] VITALS: BP 164/83
[2018-12-26] MEDS: METOPROLOL TARTRATE 50 MG TABLET PO SCH ×2 (08:25→17:03)
[2018-12-26] MEDS: LEVETIRACETAM (250 MG) 250 MG TABLET PO SCH ×2 (08:25→16:54)
[2018-12-26] MEDS: FERROUS SULFATE (325 MG) 325 MG/TAB TABLET PO SCH ×2 (08:25→16:55)
[2018-12-26] MEDS: PANTOPRAZOLE 40 MG TABLET.DR PO SCH (08:25)
[2018-12-26] MEDS: hydrALAZINE HCL 50 MG TABLET PO SCH ×3 (08:25→16:55)
[2018-12-26] MEDS: AMLODIPINE BESYLATE 5 MG TABLET PO SCH ×2 (08:26→20:42)
[2018-12-26] MEDS: Z GUARD REMEDY 2 OZ OINT TP SCH (08:26)
[2018-12-26] MEDS: LISINOPRIL (10MG) 10 MG TABLET PO SCH ×2 (08:26→20:42)
--- NOTE | 2018-12-26 11:42 | NUR ---
MS RN NOTE CALLED AND SPOKE WITH BENNY JOEL IN CASE MANAGEMENT REGARDING SON REQUEST TO SPEAK WITH ELECTRICAL ENGINEERING MANAGER AT THE BEDSIDE. PER BENNY JOEL, MATTIE IS TAKING CARE OF PT CASE AND SHE WILL INFORM MATTIE OF SON REQUEST.
--- NOTE | 2018-12-26 12:27 | NUR ---
MS TELEPHONE COIN BOX COLLECTOR OF CARE TRANSFER OF CARE TO LAITH SALGADO. INFORMED OF SON REQUEST TO SPEAK TO TIMBER SIZER OPERATOR. PT IN BED, ALERT AND ORIENTED X2-3. NO ACUTE DISTRESS NOTED. BREATHING IS EVEN AND UNLABORED ON ROOM AIR. LEFT WRIST 20G IV IS SALINE LOCKED WITHOUT REDNESS OR SWELLING. SMITH CATHETER NOTED TO BE DRAINING CLEAR, YELLOW URINE. SON IS AT THE BEDSIDE. ALL NEEDS ATTENDED TO. BED IS LOCKED AND IN LOWEST POSITION, SIDE RAILS UP X2, BED ALARM ON, CALL LIGHT AND POSSESSIONS WITHIN REACH.
--- NOTE | 2018-12-26 13:00 | NUR ---
MS RN NOTES RECEIVED PT FROM LAITH ACOSTA FOR KISHA.RECEIVED PT SITTING ON BED HAVING LUNCH.FAMILY IS AT BEDSIDE.ALERT/ORIENTED X3.FC US IN PLACE.ON ROOM AIR,TOLERATING WELL.NO SOB AND ACUTE DISTRESS NOTED.IV LINE IS ON LEFT WRIST G20,SITE IS CLEAN,DRY AND INTACT.NO INFILTRATION NOTED.SAFETY IS MAINTAINED AT ALL TIMES.BED IS IN ,LOW POSITION AND LOCKED.CALL LIGHT IS WITHIN REACH.WILL CONTINUE TO MONITOR THE PT CLOSELY.
[2018-12-26] MEDS ORDERED: HYDR25TA4 PO (14:11)
[2018-12-26] MEDS ORDERED: METO50TA16 PO (14:11)
[2018-12-26] MEDS ORDERED: FERR325T28 PO (14:11)
[2018-12-26] MEDS ORDERED: LISI10TA59 PO (14:11)
[2018-12-26] MEDS ORDERED: LEVE250T2 PO (14:11)
[2018-12-26] MEDS ORDERED: IBUP-51 PO (14:11)
[2018-12-26] MEDS ORDERED: AMLO5TAB9 PO (14:11)
[2018-12-26] MEDS ORDERED: HYDR-4077 PO (14:11)
[2018-12-26] MEDS ORDERED: LEVO500T90 PO (14:14)
[2018-12-26] MEDS: HYDROCHLOROTHIAZIDE 25 MG TABLET PO SCH (15:12)
[2018-12-26 16:00] VITALS: BP 157/90
[2018-12-26] MEDS: ISOSORBIDE DINITRATE (20MG) 20 MG TABLET PO SCH (16:54)
--- NOTE | 2018-12-26 17:00 | NUR ---
MS RN NOTES IRON GUARDRAIL INSTALLER MATTIE SAID THE PT IS PLANNING TO DC [facility] BUT THE BED IS NOT ARRANGED YET.WILL LET US KNOW WHEN ITS DONE.FAMILY MADE AWARE.
[2018-12-26] MEDS: LEVOFLOXACIN (500MG) 500 MG TABLET PO SCH (17:02)
--- NOTE | 2018-12-26 18:43 | NUR ---
MS RN CLOSING NOTES PT IS LYING ON BED.ALL DUE MEDS ARE GIVEN.NO SIGNIFICANT CHANGES NOTED IN THE SHIFT.ENDORSED TO CUT OUT WORKER RN FOR KISHA AND FOLLOW UP THE DC PROCESS.
--- NOTE | 2018-12-26 19:20 | NUR ---
MS RN OPENING NOTES Received patient in bed, alert, oriented x 3. Breathing even and unlabored. Not in any distress. No Complaints of pain or discomfort as of this time. Mathew catheter in place, draining clear yellow urine. Safety measures in place, call light within reach. Bed in low, locked position. Encouraged to call for assistance. Patient stable as endorsed by the morning RN. Will continue to monitor accordingly
[2018-12-26 20:00] VITALS: BP 128/62
[2018-12-27 04:00] VITALS: BP 163/74
[2018-12-27] MEDS: hydrALAZINE HCL 25 MG TABLET PO PRN (04:55)
--- NOTE | 2018-12-27 04:55 | NUR ---
RN NOTES Patient's BP 163/74. Apresoline 25mg PRN PO given as ordered. Will continue to monitor
[2018-12-27 05:50] VITALS: BP 145/83
--- NOTE | 2018-12-27 05:50 | NUR ---
RN NOTES Patient's BP rechecked- 145/83
--- NOTE | 2018-12-27 06:34 | NUR ---
MS RN CLOSING NOTES Patient in bed, remains stable. Breathing even and unlabored. Not in any distress. No complaints as of this time. Mathew catheter in place, emptied 13oomL of clear yellow urine. All needs attended to. All due medications given as ordered. Will endorse KISHA to oncoming RN
--- NOTE | 2018-12-27 07:10 | NUR ---
MS OZUNA OPENING NOTES RECEIVED PT LYING ON BED.ALERT/ORIENTED X1-2 WITH CONFUSION .ON ROOM AIR,TOLERATING WELL.NO SOB AND ACUTE DISTRESS NOTED.IV LINE IS ON RIGHT FA G22,SITE IS CLEAN DRY AND INTACT.NO INFILTRATION NOTED.BED IS IN LOW POSITION AND LOCKED.CALL LIGHT IS WITHIN REACH.WILL CONTINUE TO MONITOR THE PT CLOSELY AND FOLLOW UP THE PROCEDURE TODAY.PT IS ON NPO. Addendum: 12/27/18 at 0921 by NAOMI CHU RN WRONG PT CHARTING
--- NOTE | 2018-12-27 07:10 | NUR ---
MS RN OPENING NOTES RECEIVED PT LYING ON BED.ALERT/ORIENTED X2,EPISODES OF CONFUSION NOTED.ON ROOM AIR,TOLERATING WELL.NO SOB AND ACUTE DISTRESS NOTED.CAN AMBULATE BRP WITH ONE PERSON ASSISTANCE.IV LINE IS ON LEFT WRIST G20,SL.SITE IS CLEAN DRY AND INTACT.NO INFILTRATION NOTED.BED IS IN LOW POSITION AND LOCKED.CALL LIGHT IS WITHIN REACH.WILL CONTINUE TO MONITOR THE PT CLOSELY AND WILL FOLLOW UP THE DISCHARGE PROCESS.
[2018-12-27 08:00] VITALS: BP 153/68
[2018-12-27] MEDS: PANTOPRAZOLE 40 MG TABLET.DR PO SCH (08:05)
[2018-12-27] MEDS: LISINOPRIL (10MG) 10 MG TABLET PO SCH (08:06)
[2018-12-27] MEDS: FERROUS SULFATE (325 MG) 325 MG/TAB TABLET PO SCH ×2 (08:06→16:05)
[2018-12-27] MEDS: HYDROCHLOROTHIAZIDE 25 MG TABLET PO SCH (08:06)
[2018-12-27] MEDS: METOPROLOL TARTRATE 50 MG TABLET PO SCH (08:06)
[2018-12-27] MEDS: hydrALAZINE HCL 50 MG TABLET PO SCH ×3 (08:06→16:06)
[2018-12-27] MEDS: AMLODIPINE BESYLATE 5 MG TABLET PO SCH (08:07)
[2018-12-27] MEDS: LEVETIRACETAM (250 MG) 250 MG TABLET PO SCH ×2 (08:07→16:06)
[2018-12-27] MEDS: ISOSORBIDE DINITRATE (20MG) 20 MG TABLET PO SCH ×2 (08:07→16:07)
[2018-12-27] MEDS: Z GUARD REMEDY 2 OZ OINT TP SCH (08:10)
[2018-12-27 16:07] VITALS: BP 127/59
[2018-12-27] MEDS: LEVOFLOXACIN (500MG) 500 MG TABLET PO SCH (16:07)
--- NOTE | 2018-12-27 16:37 | NUR ---
MS BAR EXAMINER NOTES PT IS DISCHARGED TO [facility] VIA EMT AMBULANCE.REPORT GIVEN TO LAITH CORREA IN [facility].VITAL SIGNS CHECKED AND RECORDED.ALL DUE MEDS DARELL GIVEN.BP-127/59 AND HR-78.SON IS AT BEDSIDE AT THE TIME OF DISCHARGE.SON ISMA AND PT HERSELF VERIFIED THE BELONGINGS AND SON SIGNED THE BELONGING PAPER.FC 16FR IS OUT @1500 AND NO URINE OUTPUT NOTED,LAITH CORREA MADE AWARE AND REPORTED TO FOLLOW UP THE URINE OUTPUT.SKIN ASSESSMENT IS DONE AND HAS TAKEN THE PICTURE.NO SIGNIFICANT CHANGES NOTED.SUNNY,EKATERINA AND PT MADE AWARE ABOUT THE DC MEDS AND FOLLOW UP APPOINTMENT.IV IS REMOVED AND NO BLEEDING NOTED.ON ROOM AIR,TOLERATING WELL.NO SOB AND ACUTE DISTRESS NOTED.
[2018-12-27] MEDS ORDERED: LISINOPRIL (10MG) 10 MG TABLET PO SCH (21:00)
== END 2018-12-27 16:37 | DRG 55 ==
LOC: ER 21:41 → ICU 12-21 00:21 → TELE-TD 12-22 14:39 → TELE1 12-23 15:08 → MEDSG1 12-24 08:26
PROVIDERS: ADMIT Internal Medicine; ATTEND Nurse Practitioner Acute Care
DX: S06.5X0A Traumatic subdural hemorrhage without loss of consciousness, initial encounter (principal); I21.A1 Myocardial infarction type 2; G93.41 Metabolic encephalopathy; D68.59 Other primary thrombophilia; G93.89 Other specified disorders of brain; B35.1 Tinea unguium; I48.91 Unspecified atrial fibrillation; M62.82 Rhabdomyolysis; S82.141A Displaced bicondylar fracture of right tibia, initial encounter for closed fracture; D50.9 Iron deficiency anemia, unspecified; D72.828 Other elevated white blood cell count; E11.9 Type 2 diabetes mellitus without complications; E87.6 Hypokalemia; F01.50 Vascular dementia, unspecified severity, without behavioral disturbance, psychotic disturbance, mood disturbance, and anxiety; W18.39XA Other fall on same level, initial encounter; Y92.481 Parking lot as the place of occurrence of the external cause; S82.832A Other fracture of upper and lower end of left fibula, initial encounter for closed fracture; V03.90XA Pedestrian on foot injured in collision with car, pick-up truck or van, unspecified whether traffic or nontraffic accident, initial encounter; Y93.89 Activity, other specified; Y92.89 Other specified places as the place of occurrence of the external cause; I10 Essential (primary) hypertension; E66.3 Overweight; Z68.29 Body mass index [BMI] 29.0-29.9, adult; G40.909 Epilepsy, unspecified, not intractable, without status epilepticus; R26.2 Difficulty in walking, not elsewhere classified; S00.01XA Abrasion of scalp, initial encounter; I51.7 Cardiomegaly; Z86.73 Personal history of transient ischemic attack (TIA), and cerebral infarction without residual deficits; F17.210 Nicotine dependence, cigarettes, uncomplicated
CPT/HCPCS: 36415; 70450-TC; 71045-TC; 72125-TC; 72131-TC; 73502; 73552; 73564-TC; 73610-TC; 73700-TC; 80048-TC; 80053-TC; 80061-TC; 81000-TC; 82140-TC; 82272-TC; 82550-TC; 83540-TC; 83605-TC; 83735-TC; 84100-TC; 84443-TC; 84484-TC; 84703-TC; 85025-TC; 85730-TC; 87040-TC; 87081-TC; 87086-TC; 93307-TC; 93880-TC; 93971-TC; 95819-TC; 97110-TC; 97116-TC; 97530-TC; A4216; A6253; A6402; G0378; J0360; J1953; J1956; J2270; J2405; J3490; J7030

== ENCOUNTER 2023-01-07 22:10 | Inpatient (IN) | payer OTHER ==
[~2023-01-07] VITALS: Ht 152.4 cm; Wt 83.0 kg
[~2023-01-07 22:10] MED LIST: AMLO-212 PO; FERR325T28 PO; HYDR-4077 PO; HYDR25TA4 PO; IBUP-51 PO; LEVE250T2 PO; LEVO500T90 PO; LISI10TA30 PO; METO50TA16 PO
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
[2023-01-07] MEDS ORDERED: IV NS 0.9% 500 ML BAG IV ONE (23:00)
--- NOTE | 2023-01-07 23:20 | NUR ---
IV LINE STARTED AT R HAND 20G, BLOOD DRAWN AND SENT TO LAB
--- NOTE | 2023-01-07 23:35 | NUR ---
URINE COLLECTED, SENT TO LAB
[2023-01-07 23:38] LABS: BASOPHILS # (AUTO) 0.1 K/uL (0.0-0.2); BASOPHILS % (AUTO) 1.2 % (0.0-2.0); EOSINOPHILS % (AUTO) 2.9 % (0.0-6.0); HEMATOCRIT 37 % (33-45); HEMOGLOBIN 11.6 g/dL (11.5-14.8); LYMPHOCYTES # (AUTO) 2.7 K/uL (0.8-4.8); LYMPHOCYTES % (AUTO) 43.6 % (20.0-44.0); MEAN CORPUSCULAR HGB CONC 32 g/dl (31.0-36.0); MEAN CORPUSCULAR VOLUME 73 fL (82-100); MONOCYTES # (AUTO) 0.6 K/uL (0.1-1.30); MONOCYTES % (AUTO) 9.4 % (2.0-12.0); NEUTROPHILS # (AUTO) 2.7 K/uL (1.8-8.9); NEUTROPHILS % (AUTO) 42.9 % (43.0-81.0); PLATELET COUNT (AUTO) 239 K/uL (150-450); RED BLOOD CELL COUNT(AUTO) 5.02 MIL/uL (4.0-5.2); WHITE BLOOD COUNT (AUTO) 6.3 K/uL (4.3-11.0)
--- NOTE | 2023-01-07 23:48 | NUR ---
PT TAKEN TO CT VIA ROBERT
[2023-01-07 23:53] LABS: ALANINE AMINOTRANSFERASE 32 U/L (12-78); ALBUMIN 3.8 g/dL (3.4-5.0); ALKALINE PHOSPHATASE 157 U/L (46-116); ASPARTATE AMINOTRANSFERASE 19 U/L (15-37); BILIRUBIN,DIRECT 0.1 mg/dL (0.0-0.2); BILIRUBIN,TOTAL 0.4 mg/dL (0.2-1.0); CALCIUM, SERUM 9.2 mg/dL (8.5-10.1); CARBON DIOXIDE 29 mmol/L (21-32); CHLORIDE 104 mmol/L (98-107); GLUCOSE 222 mg/dL (74-106); POTASSIUM 4.2 mmol/L (3.5-5.1); SODIUM SERUM 140 mmol/L (136-145); TOTAL PROTEIN, SERUM 8.2 g/dL (6.4-8.2); UREA NITROGEN, BLOOD 31 mg/dL (7-18)
[2023-01-07 23:58] LABS: BILIRUBIN,URINE NEGATIVE (NEGATIVE); COLOR,URINE YELLOW (YELLOW); LEUKOCYTE ESTERASE ,URINE NEGATIVE (NEGATIVE); NITRITE, URINE NEGATIVE (NEGATIVE); PROTEIN,URINE NEGATIVE (NEGATIVE); UGLUCOSE NEGATIVE (NEGATIVE); UROBILINOGEN,URINE 0.2 EU/dL (0.2)
[2023-01-08 00:01] LABS: ACETAMINOPHEN < 10 ug/ml (10-30); ALCOHOL, BLOOD < 3 mg/dL (0-0)
[2023-01-08 00:26] LABS: BACTERIA,URINE None seen /HPF (None Seen); RBC,URINE 0-2 /HPF (0-2); SQUAMOUS EPITHELIAL CELL,UR 0-2 /HPF (None Seen)
--- NOTE | 2023-01-08 00:41 | NUR ---
COVID SWAB SENT
[2023-01-08] MEDS ORDERED: ASPIRIN 325 MG TABLET ONE (01:46)
--- NOTE | 2023-01-08 01:46 | NUR ---
SPOKE TO KINZA THE CM AND REC'D AUTH TO KEEP TH PT
[2023-01-08] MEDS ORDERED: ASPIRIN 325 MG TABLET PO ONE (02:00)
--- NOTE | 2023-01-08 02:51 | NUR ---
PT'S SON CONCERNED WITH PT GETTING PRESSURE ULCER, REQUESTING FOR AIR MATTRESS WHEN PT GETS ADMITTED. WILL RELAY TO ADMITTING RN. PT'S SON ISMA [phone]
--- NOTE | 2023-01-08 03:24 | NUR ---
REPORT GIVEN TO MARVA OZUNA
--- NOTE | 2023-01-08 03:52 | NUR ---
PT TRANSFERRED TO [facility] 304-1 VIA ACLS PROTOCOL.
[2023-01-08 04:00] VITALS: BP 158/99
--- NOTE | 2023-01-08 04:00 | NUR ---
cro notes Received Pt from LAITH Ruiz. Pt is alert and orientedX2 with episode of confusion. On room air. No SOB. No S/S of distress noted. tele monitor showed SR with BBB hr at 87. IV site at R hand# 20 is clean, intact and flushes easily. Pt's belonging was checked by STEPHANE Rojas. Skin assesment is done and performed. Noted scar on the buttock. Reorient Pt to the room and the use of call light. Pt verbalize understanding. Safety precautions is maintained. bed at low position, brakes locked, side rails upX2, hob elevated and call light is with reach. will continue to monitor.
--- NOTE | 2023-01-08 04:15 | NUR ---
RN notes Called and spoke with Pt's son Brenda ( [phone]) to give updates and vaccinations status. Pt's son informed that Pt received covid vaccine [facility]. Pt's son also informed that he wants fullcode for his mom. Pt's son appreciate the info and the help and support from the staffs.
[2023-01-08] MEDS ORDERED: ACETAMINOPHEN 325 MG TABLET PO PRN (06:00)
[2023-01-08] MEDS ORDERED: ONDANSETRON HCL/PF 4 MG/2 ML VIAL IVP PRN (06:00)
[2023-01-08] MEDS ORDERED: MAG HYDROX/AL HYDROX/SIMETH 30 ML UDC PO PRN (06:00)
[2023-01-08] MEDS ORDERED: DEXTROSE 50%-WATER 50 ML DISP.SYRIN IV PRN (06:00)
--- NOTE | 2023-01-08 06:30 | NUR ---
RN closing notes Pt is sitting in bed comfortably. Pt is alert and orientedX2 with episode of confusion. On room air. No SOB. No S/S of distress noted. tele monitor showed SR with first degree av block and BBB hr at 84. IV site at R hand# 20 is clean, intact and flushes easily. Kept Pt clean, dry and comfortable. All needs met and attended. Safety precautions is maintained. bed at low position, brakes locked, side rails upX2, hob elevated and call light is with reach. Will endorse to am nurse for KISHA.
[2023-01-08] MEDS: BLOOD SUGAR DIAGNOSTIC 1 EACH STRIP IN SCH ×4 (06:46→21:35)
[2023-01-08] MEDS: INSULIN REGULAR, HUMAN 100 UNIT/ML 3 ML VIAL SQ PRN ×4 (06:49→21:35)
--- NOTE | 2023-01-08 07:30 | NUR ---
SENIOR FORMULATION SCIENTIST OPENING NOTES RECEIVED PATIENT ON BED AWAKE AND A/O X2. ON ROOM AIR TOLERATING WELL. NO SOB NOTED. NOT IN DISTRESS. WITH NO COMPLAINTS OF PAIN AT THIS TIME. WITH IV ACCESS AT THE RIGHT HAND G20 SALINE LOCKED, PATENT AND INTACT. ON TELE MONITOR CURRENTLY READING SINUS RHYTHM 87BPM. WITH PUREWICK ATTACHED TO SUCTION. SAFETY MEASURES IN PLACED. CALL LIGHT WITHIN REACH. BED ON LOWEST LOCKED POSITION, SIDE RAILS UP X2. WILL CONTINUE TO MONITOR.
[2023-01-08 08:12] VITALS: BP 154/106
[2023-01-08] MEDS ORDERED: ENOXAPARIN SODIUM 40 MG/0.4 ML DISP.SYRIN SQ SCH (09:00)
[2023-01-08] MEDS ORDERED: HYDROCHLOROTHIAZIDE 25 MG TABLET PO SCH (09:30)
[2023-01-08] MEDS ORDERED: AMLODIPINE BESYLATE 5 MG TABLET PO SCH (09:30)
[2023-01-08] MEDS: LISINOPRIL (10MG) 10 MG TABLET PO SCH ×2 (09:30→21:00)
[2023-01-08] MEDS ORDERED: ENOXAPARIN SODIUM 40 MG/0.4 ML DISP.SYRIN SQ ONE (09:40)
[2023-01-08] MEDS: METOPROLOL TARTRATE 50 MG TABLET PO SCH ×2 (09:50→17:16)
[2023-01-08] MEDS: LEVETIRACETAM (250 MG) 250 MG TABLET PO SCH ×2 (09:50→17:16)
[2023-01-08] MEDS: hydrALAZINE HCL 50 MG TABLET PO SCH ×3 (09:51→17:17)
[2023-01-08] MEDS ORDERED: INSU100V7 SQ (10:32)
[2023-01-08] MEDS ORDERED: INSU100I4 SQ (10:32)
[2023-01-08] MEDS ORDERED: DULA0.75 SQ (10:32)
[2023-01-08] MEDS ORDERED: AMLO-213 PO (10:32)
[2023-01-08] MEDS ORDERED: HYDR12.55 PO (10:32)
[2023-01-08] MEDS ORDERED: DICL75TA5 PO (10:32)
[2023-01-08] MEDS ORDERED: VALS80TA31 PO (10:32)
[2023-01-08] MEDS ORDERED: ATOR40TA PO (10:32)
[2023-01-08 11:25] LABS: BASOPHILS # (AUTO) 0.1 K/uL (0.0-0.2); BASOPHILS % (AUTO) 0.9 % (0.0-2.0); EOSINOPHILS % (AUTO) 3.5 % (0.0-6.0); HEMATOCRIT 34 % (33-45); HEMOGLOBIN 11.2 g/dL (11.5-14.8); LYMPHOCYTES # (AUTO) 2.5 K/uL (0.8-4.8); LYMPHOCYTES % (AUTO) 42.7 % (20.0-44.0); MEAN CORPUSCULAR HGB CONC 33 g/dl (31.0-36.0); MEAN CORPUSCULAR VOLUME 72 fL (82-100); MONOCYTES # (AUTO) 0.5 K/uL (0.1-1.30); MONOCYTES % (AUTO) 9.3 % (2.0-12.0); NEUTROPHILS # (AUTO) 2.6 K/uL (1.8-8.9); NEUTROPHILS % (AUTO) 43.6 % (43.0-81.0); PLATELET COUNT (AUTO) 237 K/uL (150-450); RED BLOOD CELL COUNT(AUTO) 4.79 MIL/uL (4.0-5.2); WHITE BLOOD COUNT (AUTO) 5.9 K/uL (4.3-11.0)
[2023-01-08 11:33] LABS: ALBUMIN 3.5 g/dL (3.4-5.0); BILIRUBIN,TOTAL 0.5 mg/dL (0.2-1.0); CALCIUM, SERUM 8.8 mg/dL (8.5-10.1); CREATININE 0.8 mg/dL (0.6-1.3); MAGNESIUM 2.1 mg/dL (1.8-2.4); PHOSPHORUS 3.9 mg/dL (2.5-4.9); POTASSIUM 3.3 mmol/L (3.5-5.1); TOTAL PROTEIN, SERUM 7.7 g/dL (6.4-8.2)
--- NOTE | 2023-01-08 11:59 | NUR ---
WOUND CARE CONSULT: PT PRESENTS WITH SCARRING TO SACRUM/BILATERAL BUTTOCKS, PRESENT ON ADMISSION. DISCUSSED SKIN PROTECTION WITH NURSING STAFF. IN AGREEMENT WITH PLAN OF CARE.
[2023-01-08 12:00] VITALS: BP 125/75
[2023-01-08] MEDS ORDERED: Z GUARD REMEDY 4 OZ OINT TP PRN (12:00)
[2023-01-08 15:54] LABS: EOSINOPHILS % (MANUAL) 3 % (0-4); LYMPHOCYTES % (MANUAL) 46 % (16-48); MONOCYTES % (MANUAL) 6 % (0-11.0); NEUTROPHILS % (MANUAL) 43 (42-76); REACTIVE LYMPHOCYTES 2 % (0-0)
[2023-01-08] MEDS: DICLOFENAC SODIUM 25 MG TABLET.DR PO SCH (17:17)
--- NOTE | 2023-01-08 18:51 | NUR ---
GROUTER HELPER CLOSING NOTES PATIENT ON BED AWAKE AND A/O X2. ON ROOM AIR TOLERATING WELL. NO SOB NOTED. NOT IN DISTRESS. WITH COMPLAINTS OF PAIN OF THE RIGHT KNEE, MEDICATION GIVEN FOR KNEE PAIN. WITH IV ACCESS AT THE RIGHT HAND G20 SALINE LOCKED, PATENT AND INTACT. ON TELE MONITOR CURRENTLY READING SINUS RHYTHM 70BPM. WITH PUREWICK ATTACHED TO SUCTION. PATIENT WAS SUPPOSED TO HAVE CTCA TODAY BUT WASN'T DONE FOR PATIENT NOT ABLE TO FOLLOW INSTRUCTIONS. DUE MEDS GIVEN. SAFETY MEASURES IN PLACED. CALL LIGHT WITHIN REACH. BED ON LOWEST LOCKED POSITION, SIDE RAILS UP X2. WILL ENDORSE TO NEXT SHIFT FOR KISHA.
--- NOTE | 2023-01-08 19:49 | NUR ---
GLASS BLOCK BENDER OPENING NOTES PATIENT ON BED AWAKE AND A/O X2. ON ROOM AIR TOLERATING WELL. NO SOB NOTED. NOT IN DISTRESS. WITH IV ACCESS AT THE RIGHT HAND G20 SALINE LOCKED, PATENT AND INTACT. ON TELE MONITOR CURRENTLY READING SINUS RHYTHM. PATIENT WAS SUPPOSED TO HAVE CTCA TODAY BUT WASN'T DONE FOR PATIENT NOT ABLE TO FOLLOW INSTRUCTIONS. SAFETY MEASURES IN PLACED. CALL LIGHT WITHIN REACH. BED ON LOWEST LOCKED POSITION, SIDE RAILS UP X2.
[2023-01-08 20:00] VITALS: BP 109/69
[2023-01-08] MEDS ORDERED: POTASSIUM CHLORIDE 20 MEQ TAB.PRT.SR PO ONE (20:00)
[2023-01-08] MEDS: ENOXAPARIN SODIUM 80 MG/0.8 ML DISP.SYRIN SQ SCH (20:57)
[2023-01-09] VITALS: BP 117/69
[2023-01-09 04:00] VITALS: BP 140/68
[2023-01-09 06:22] LABS: BASOPHILS # (AUTO) 0.1 K/uL (0.0-0.2); BASOPHILS % (AUTO) 0.9 % (0.0-2.0); EOSINOPHILS % (AUTO) 3.4 % (0.0-6.0); HEMATOCRIT 34 % (33-45); LYMPHOCYTES % (AUTO) 47.3 % (20.0-44.0); MEAN CORPUSCULAR HGB CONC 32 g/dl (31.0-36.0); MEAN CORPUSCULAR VOLUME 73 fL (82-100); MONOCYTES # (AUTO) 0.6 K/uL (0.1-1.30); MONOCYTES % (AUTO) 9.2 % (2.0-12.0); NEUTROPHILS # (AUTO) 2.5 K/uL (1.8-8.9); NEUTROPHILS % (AUTO) 39.2 % (43.0-81.0); PLATELET COUNT (AUTO) 190 K/uL (150-450); RED BLOOD CELL COUNT(AUTO) 4.73 MIL/uL (4.0-5.2); WHITE BLOOD COUNT (AUTO) 6.3 K/uL (4.3-11.0)
[2023-01-09] MEDS: BLOOD SUGAR DIAGNOSTIC 1 EACH STRIP IN SCH ×4 (06:33→21:21)
[2023-01-09] MEDS: INSULIN REGULAR, HUMAN 100 UNIT/ML 3 ML VIAL SQ PRN ×4 (06:34→21:27)
--- NOTE | 2023-01-09 06:53 | NUR ---
POOL TECHNICIAN CLOSING NOTES PATIENT ON BED AWAKE AND A/O X2-3 EPISODES OF CONFUSION. ON ROOM AIR TOLERATING WELL. NO SOB NOTED. NOT IN DISTRESS. WITH IV ACCESS AT THE RIGHT HAND G20 SALINE LOCKED, PATENT AND INTACT. ON TELE MONITOR CURRENTLY READING SR/SB WITH 1ST DEGREE AND BBB. SAFETY MEASURES IN PLACED. CALL LIGHT WITHIN REACH. BED ON LOWEST LOCKED POSITION, SIDE RAILS UP X2.
[2023-01-09 07:05] LABS: ALBUMIN 3.4 g/dL (3.4-5.0); BILIRUBIN,TOTAL 0.7 mg/dL (0.2-1.0); CALCIUM, SERUM 8.9 mg/dL (8.5-10.1); MAGNESIUM 2.5 mg/dL (1.8-2.4); PHOSPHORUS 5.1 mg/dL (2.5-4.9); POTASSIUM 4.1 mmol/L (3.5-5.1); TOTAL PROTEIN, SERUM 7.3 g/dL (6.4-8.2)
--- NOTE | 2023-01-09 07:30 | NUR ---
WELDER FITTER HELPER OPENING NOTES RECEIVED PATIENT SLEEPING IN BED, A/O X2-3 WITH EPISODES OF CONFUSION. ON ROOM AIR TOLERATING WELL. NO SOB NOTED. NOT IN DISTRESS. WITH IV ACCESS AT THE RIGHT HAND G20 SALINE LOCKED, PATENT AND INTACT. ON TELE MONITOR CURRENTLY READING SR/SB 59 WITH 1ST DEGREE AND BBB AND OCCASIONAL PVC. SAFETY MEASURES IN PLACED. CALL LIGHT WITHIN REACH. BED ON LOWEST LOCKED POSITION, SIDE RAILS UP X2. WILL ADMINISTER SCHEDULED MEDS A SORDERED AND CONTINUE TO MONITOR PATIENT.
[2023-01-09 08:00] VITALS: BP 117/66
[2023-01-09] MEDS: ATORVASTATIN 40 MG TABLET PO SCH (08:25)
[2023-01-09] MEDS: METOPROLOL TARTRATE 50 MG TABLET PO SCH ×2 (08:26→17:22)
[2023-01-09] MEDS: hydrALAZINE HCL 50 MG TABLET PO SCH (08:26)
[2023-01-09] MEDS: HYDROCHLOROTHIAZIDE 25 MG TABLET PO SCH (08:27)
[2023-01-09] MEDS: LISINOPRIL (10MG) 10 MG TABLET PO SCH (08:27)
[2023-01-09] MEDS: VALSARTAN 80 MG TABLET PO SCH (08:27)
[2023-01-09] MEDS: LEVETIRACETAM (250 MG) 250 MG TABLET PO SCH (08:27)
[2023-01-09] MEDS: AMLODIPINE BESYLATE 10 MG TABLET PO SCH (08:28)
[2023-01-09] MEDS: ENOXAPARIN SODIUM 80 MG/0.8 ML DISP.SYRIN SQ SCH ×2 (08:29→21:20)
[2023-01-09] MEDS: DICLOFENAC SODIUM 25 MG TABLET.DR PO SCH ×2 (09:03→17:21)
[2023-01-09 12:00] VITALS: BP 119/60
--- NOTE | 2023-01-09 13:27 | NUR ---
PAYROLL TAX SPECIALIST NOTES PER PT SON, PT DOES NOT TAKE THE FF MEDS: KEPPRA, LISINOPRIL, AND HYDRALAZINE. EVELINA KAPOOR INFORMED, ORDERED TO D/C MEDS.
[2023-01-09 16:00] VITALS: BP 106/54
--- NOTE | 2023-01-09 18:27 | NUR ---
BUSINESS UNIT DIRECTOR NOTES PT IN BED, AWAKE, ALERT, VERBALLY RESPONSIVE, WITH CONFUSION AT TIMES, DENIES PAIN, NOT IN DISTRESS, CALL LIGHT WITHIN REACH, PM MEDS GIVEN ORDERED, PERICARE PROVIDED, ASSISTED WITH MEALS, NEEDS ATTENDED.
--- NOTE | 2023-01-09 19:30 | NUR ---
FIELD CHECKER OPENING NOTE: RECEIVED PT LAYING COMFORTABLY IN BED, AWAKE, ALERT, VERBALLY RESPONSIVE, WITH CONFUSION AT TIMES. PT DENIES PAIN, DOES NOT APPEAR TO BE IN DISTRESS. BED LOCKED IN LOWEST POSITION, BED ALARM ON, CALL LIGHT AND BELONGINGS WITHIN REACH. SINUS RHYTHM 68 WITH BBB. SCDS ON, ON RA WITH NO ACCESSORY MUSCLE USE, NO S/SX OF LABORED BREATHING OR RESPIRATORY DISTRESS.
--- NOTE | 2023-01-09 21:28 | NUR ---
TEXTILE MACHINE OPERATOR NOTE: BLOOD GLUCOSE 137. WILL NOT ADMINISTER INSULIN ACCORDING TO SLIDING SCALE B/C PATIENT DID NOT EAT MUCH OF HER DINNER AND IS NOT HUNGRY AT THIS TIME. SNACKS REFUSED WHEN OFFERED. PATIENT EXPRESSES THE WANT TO SLEEP.
[2023-01-09 22:00] VITALS: BP 114/63
[2023-01-10] VITALS: BP 126/71
[2023-01-10 04:00] VITALS: BP 134/84
[2023-01-10 05:48] LABS: BASOPHILS % (AUTO) 0.7 % (0.0-2.0); EOSINOPHILS % (AUTO) 3.5 % (0.0-6.0); HEMATOCRIT 35 % (33-45); HEMOGLOBIN 10.8 g/dL (11.5-14.8); LYMPHOCYTES # (AUTO) 3.5 K/uL (0.8-4.8); LYMPHOCYTES % (AUTO) 56.1 % (20.0-44.0); MEAN CORPUSCULAR HGB CONC 31 g/dl (31.0-36.0); MEAN CORPUSCULAR VOLUME 75 fL (82-100); MONOCYTES # (AUTO) 0.6 K/uL (0.1-1.30); MONOCYTES % (AUTO) 9.9 % (2.0-12.0); NEUTROPHILS # (AUTO) 1.8 K/uL (1.8-8.9); NEUTROPHILS % (AUTO) 29.8 % (43.0-81.0); PLATELET COUNT (AUTO) 173 K/uL (150-450); RED BLOOD CELL COUNT(AUTO) 4.68 MIL/uL (4.0-5.2); WHITE BLOOD COUNT (AUTO) 6.2 K/uL (4.3-11.0)
[2023-01-10 06:11] LABS: CREATININE 0.9 mg/dL (0.6-1.3); POTASSIUM 3.7 mmol/L (3.5-5.1)
--- NOTE | 2023-01-10 06:23 | NUR ---
EGG PRODUCER CLOSING NOTE: PT LAYING COMFORTABLY IN BED, AWAKE, ALERT, VERBALLY RESPONSIVE, WITH CONFUSION AT TIMES. LINENS CHANGED, YUAN AND SKIN CARE PROVIDED. PT DENIES PAIN, DOES NOT APPEAR TO BE IN DISTRESS. BED LOCKED IN LOWEST POSITION, BED ALARM ON, CALL LIGHT AND BELONGINGS WITHIN REACH. SINUS RHYTHM WITH BBB. SCDS ON, ON ROOM AIR WITH NO ACCESSORY MUSCLE USE, NO S/SX OF LABORED BREATHING OR RESPIRATORY DISTRESS. PT WAS FOUND WITH HER IV PULLED OUT. NEW IV WAS INSERTED ON LEFT HAND (22 G). PT TOLERATED.
[2023-01-10] MEDS: BLOOD SUGAR DIAGNOSTIC 1 EACH STRIP IN SCH ×4 (06:30→21:29)
[2023-01-10] MEDS: INSULIN REGULAR, HUMAN 100 UNIT/ML 3 ML VIAL SQ PRN ×4 (06:32→21:25)
[2023-01-10 07:00] VITALS: BP 126/69
--- NOTE | 2023-01-10 07:39 | NUR ---
CLINICAL TECHNICIAN OPENING NOTE: RECEIVED PT IN BED, AWAKE , ALERT, VERBALLY RESPONSIVE, WITH CONFUSION AT TIMES. PT DENIES PAIN, DOES NOT APPEAR TO BE IN DISTRESS. IV ACCESS ON LEFT HAND G# 22 SL , BED LOCKED IN LOWEST POSITION, BED ALARM ON, CALL LIGHT WITHIN REACH SINUS RHYTHM 68 WITH BBB., ON RA WITH NO SOB OR DISTRESS NOTED , SAFETY PRECAUTIONS PROVIDED AT ALL TIMES AND WILL MONITOR FOR ANY CHANGES
[2023-01-10] MEDS: AMLODIPINE BESYLATE 10 MG TABLET PO SCH (08:36)
[2023-01-10] MEDS: METOPROLOL TARTRATE 50 MG TABLET PO SCH ×2 (08:36→17:33)
[2023-01-10] MEDS: ATORVASTATIN 40 MG TABLET PO SCH (08:37)
[2023-01-10] MEDS: VALSARTAN 80 MG TABLET PO SCH (08:37)
[2023-01-10] MEDS: HYDROCHLOROTHIAZIDE 25 MG TABLET PO SCH (08:38)
[2023-01-10] MEDS: ENOXAPARIN SODIUM 80 MG/0.8 ML DISP.SYRIN SQ SCH ×2 (08:40→21:21)
[2023-01-10] MEDS: DICLOFENAC SODIUM 25 MG TABLET.DR PO SCH ×2 (09:23→17:33)
[2023-01-10 12:00] VITALS: BP 120/61
[2023-01-10 12:42] LABS: BASOPHILS % (MANUAL) 0 % (0.0-2.0); EOSINOPHILS % (MANUAL) 2 % (0-4); LYMPHOCYTES % (MANUAL) 54 % (16-48); MONOCYTES % (MANUAL) 9 % (0-11.0); NEUTROPHILS % (MANUAL) 35 (42-76)
[2023-01-10 16:00] VITALS: BP 112/64
--- NOTE | 2023-01-10 18:53 | NUR ---
NEWS EDITOR CLOSING NOTE: PT IN BED, AWAKE , ALERT, VERBALLY RESPONSIVE, WITH CONFUSION AT TIMES. PT DENIES PAIN, DOES NOT APPEAR TO BE IN DISTRESS. IV ACCESS ON LEFT HAND G# 22 SL , BED LOCKED IN LOWEST POSITION, BED ALARM ON, CALL LIGHT WITHIN REACH SINUS RHYTHM 69., ON RA WITH NO SOB OR DISTRESS NOTED , ALL DUE MEDS GIVEN ORDERED , SAFETY PRECAUTIONS PROVIDED AT ALL TIMES AND ENDORSED TO NEXT SHIFT
--- NOTE | 2023-01-10 20:39 | NUR ---
TELE BITE BLOCK MAKER INITIAL NOTES RECEIVED REPORT FROM AM NURSE AND SEEN PATIENT IN ON SEMI FOWLERS POSITION WITH SIDE RAILS X2 UP, SHE'S AWAKE AND ALERT WATCHING TV , DENIES ANY PAIN OR ANY DISCOMFORT. PT STATED THAT'S SHE'S HUNGRY. I TALKED TO HER THAT I WILL CHECK HER BLOOD SUGAR THEN I WILL GIVE HER SNACKS. SHE ALSO ON TELE SINUS RHYTHM WITH BBB HEART RATE 77 PER MONITOR . RE-ORIENTED HOW TO USE THE CALL LIGHT AND ENCOURAGE HER TO USE IF SHE NEEDS SOME HELP OR NEEDS ASSISTANCE. KEPT HER WARM AND COMFORTABLE AT ALL TIMES. WILL CONTINUE MONITORING. PLACE CALL LIGHT AT REACH.
[2023-01-10 21:15] VITALS: BP 135/76
--- NOTE | 2023-01-10 21:30 | NUR ---
TELE ONCOLOGY ACCOUNT SPECIALIST NOTES ROUTINE MEDS GIVEN AND BLOOD SUGAR CHECKED DONE 232, INSULIN 4 UNITS GIVEN ALEC SQ ORDERED. NO SIGNS OF HYPO/HYPER GLYCEMIA NOTED. SNACKS ALSO SERVED. WILL CONTINUE MONITORING.
[2023-01-11 00:34] VITALS: BP 154/98
[2023-01-11 04:51] VITALS: BP 151/87
[2023-01-11] MEDS: BLOOD SUGAR DIAGNOSTIC 1 EACH STRIP IN SCH ×3 (06:51→17:09)
[2023-01-11] MEDS: INSULIN REGULAR, HUMAN 100 UNIT/ML 3 ML VIAL SQ PRN ×2 (06:58→12:54)
--- NOTE | 2023-01-11 07:15 | NUR ---
SOLAR PROJECT MANAGER OPENING NOTE: RECEIVED PT IN BED, AWAKE, AO/X2-3, VERBALLY RESPONSIVE, WITH CONFUSION AT TIMES. ON ROOM AIR, TOLERATING WELL AND SATURATING AT 97%. NO SIGNS OF ACUTE DISTRESS NOTED. DENIES PAIN AT THIS TIME. ON TELE MONITORING READING SR WITH BBB, HR:87. WITH IV ACCESS ON LEFT HAND G#22-SALINE LOCKED. SAFETY MEASURES IN PLACE. BED IN LOW AND LOCKED POSITION; SIDE RAILS UP X2; CALL LIGHT WITHIN EASY REACH; WILL CONTINUE TO MONITOR THE PATIENT.
--- NOTE | 2023-01-11 07:34 | NUR ---
TELE DONOR PROCESSOR CLOSING NOTES PT AWAKE AND ALERT AT THIS TIME WATCHING TV, BLOOD SUGAR 133, 2 UNITS OF INSULIN GIVEN ALEC SQ ORDERED. ALL DUE MEDS GIVEN AND ALL NEEDS MET. TELE SR WITH BBB PER MONITOR. MORNING CARE DONE WITH THE HELPED OF COMMUNITY OUTREACH ADVOCATE . KEPT HER WARM AND COMFORTABLE AT ALL TIMES. BED IN LOW AND LOCK IN POSITION WITH SIDE RAILS UP X2. PLACE CALL LIGHT AT REACH. ENDORSE TO AM NURSE FOR CONTINUITY OF CARE.
[2023-01-11 08:00] VITALS: BP 160/100
[2023-01-11] MEDS: VALSARTAN 80 MG TABLET PO SCH (09:03)
[2023-01-11] MEDS: METOPROLOL TARTRATE 50 MG TABLET PO SCH (09:04)
[2023-01-11] MEDS: AMLODIPINE BESYLATE 10 MG TABLET PO SCH (09:04)
[2023-01-11] MEDS: ATORVASTATIN 40 MG TABLET PO SCH (09:05)
[2023-01-11] MEDS: HYDROCHLOROTHIAZIDE 25 MG TABLET PO SCH (09:05)
[2023-01-11] MEDS: ENOXAPARIN SODIUM 80 MG/0.8 ML DISP.SYRIN SQ SCH (09:09)
[2023-01-11] MEDS: DICLOFENAC SODIUM 25 MG TABLET.DR PO SCH (09:25)
[2023-01-11 12:00] VITALS: BP 136/80
--- NOTE | 2023-01-11 13:10 | NUR ---
CHEMIST NOTE SEEN BY HOSPITALIST EVELINA WITH ORDER TO DISCHARGE PATIENT. HEALTH TEACHING DONE REGARDING DISCHARGE ORDER AND PROCEDURE. VERBALIZED UNDERSTANDING AND APPRECIATION. PATIENT IS CONFUSED AND WILL NEED REINFORCEMENTS. SPOKE WITH SON ISMA. PATIENT UNABLE TO FOLLOW INSTRUCTION FOR CTCA. VERBALIZED UNDERSTANDING AND APPRECIAITON. IN STABLE CONDITION.
[2023-01-11] MEDS ORDERED: ENOX40DI SQ (14:04)
[2023-01-11] MEDS ORDERED: METO50TA16 PO (14:04)
[2023-01-11 16:18] VITALS: BP 151/79
--- NOTE | 2023-01-11 18:30 | NUR ---
TELE DISCHARGE NOTES PATIENT DISCHARGED ORDERED. PICKED UP BY EMT VIA GURNEY. IV ACCESS REMOVED. PATIENT IS IN STABLE CONDITION. REINFORCE HEALTH TEACHING TO SON ISMA. BELONGINGS ENDORSED TO EKATERINA ASHBY. ENDORSED TO FACILITY NURSE [facility]. ENDORSED ACCORDINGLY.
== END 2023-01-11 18:30 | DRG 190 ==
LOC: ER 22:12 → TELE 01-08 03:27
PROVIDERS: ADMIT Nurse Practitioner Acute Care; ATTEND Nurse Practitioner Acute Care
DX: I25.10 Atherosclerotic heart disease of native coronary artery without angina pectoris (principal); I21.A1 Myocardial infarction type 2; G93.41 Metabolic encephalopathy; D68.59 Other primary thrombophilia; S09.90XA Unspecified injury of head, initial encounter; E11.9 Type 2 diabetes mellitus without complications; I48.91 Unspecified atrial fibrillation; G40.909 Epilepsy, unspecified, not intractable, without status epilepticus; E66.9 Obesity, unspecified; E78.5 Hyperlipidemia, unspecified; Z86.73 Personal history of transient ischemic attack (TIA), and cerebral infarction without residual deficits; I10 Essential (primary) hypertension; S83.92XA Sprain of unspecified site of left knee, initial encounter; W19.XXXA Unspecified fall, initial encounter; Y92.9 Unspecified place or not applicable; S83.91XA Sprain of unspecified site of right knee, initial encounter; Z98.890 Other specified postprocedural states; Z79.899 Other long term (current) drug therapy; R79.89 Other specified abnormal findings of blood chemistry; E87.6 Hypokalemia; Z68.35 Body mass index [BMI] 35.0-35.9, adult; Z74.09 Other reduced mobility; Z87.2 Personal history of diseases of the skin and subcutaneous tissue; Z99.3 Dependence on wheelchair; M85.80 Other specified disorders of bone density and structure, unspecified site; M17.11 Unilateral primary osteoarthritis, right knee; F03.90 Unspecified dementia, unspecified severity, without behavioral disturbance, psychotic disturbance, mood disturbance, and anxiety; M19.90 Unspecified osteoarthritis, unspecified site; I45.10 Unspecified right bundle-branch block; J34.89 Other specified disorders of nose and nasal sinuses; Z79.01 Long term (current) use of anticoagulants; Z79.4 Long term (current) use of insulin; Z79.85 Long-term (current) use of injectable non-insulin antidiabetic drugs
CPT/HCPCS: 36415; 70450-TC; 71045-TC; 72125-TC; 73564-TC; 80048-TC; 80053-TC; 80061-TC; 80076-TC; 81001; 82962-TC; 83605-TC; 83735-TC; 84100-TC; 84484-TC; 85025-TC; 85730-TC; 87040-TC; 87081-TC; 93307-TC; 97110-TC; 97112-TC; 97530-TC; 97535-TC; C9803; G0378; G0480; J1650; J1815; J7040